=== PATIENT | female | born 1995 | race Caucasian/White ===

== ENCOUNTER 2022-11-14 08:06 | Emergency (ER) | payer BC | END 2022-11-14 10:05 | disposition home or self-care (01) | LOC: LL.ED 08:06 | DX: R10.2 Pelvic and perineal pain (principal); N92.6 Irregular menstruation, unspecified; E66.9 Obesity, unspecified; Z68.43 Body mass index [BMI] 50.0-59.9, adult; Z88.8 Allergy status to other drugs, medicaments and biological substances; Z79.899 Other long term (current) drug therapy; Z87.891 Personal history of nicotine dependence | CPT/HCPCS: 36415; 84703; 99284 ==